=== PATIENT | male | born 1950 | race Caucasian/White ===

== ENCOUNTER → 2018-08-09 | Outpatient (CLI) | payer OTHER | END | disposition home or self-care (01) | LOC: CFH 11:43 | PROVIDERS: ATTEND Internal Medicine | DX: M47.817 Spondylosis without myelopathy or radiculopathy, lumbosacral region (principal); M47.815 Spondylosis without myelopathy or radiculopathy, thoracolumbar region; M25.78 Osteophyte, vertebrae; M48.07 Spinal stenosis, lumbosacral region; D18.09 Hemangioma of other sites | CPT/HCPCS: 72148 ==